=== PATIENT | female | born 1955 | race African-American/Black ===

== ENCOUNTER 2020-05-13 07:36 | Emergency (ER) | payer MEDICARE, MEDICAID ==
[~2020-05-13] VITALS: Ht 172.7 cm; Wt 113.0 kg
[~2020-05-13 07:36] MED LIST: AMLO10TA80 PO; ASPI-1497 PO; ATOR40TA70 PO; CLOP75TA33 PO; DAILY VITE PO; FURO40TA5 PO; LOSA100T32 PO; MAPAP PO; METH500T PO; METO-539 PO; POTA10TA11 PO; TRAM50TA3 PO
[2020-05-13 07:47] VITALS: BP 122/73
[2020-05-13] MEDS ORDERED: FAMOTIDINE 20MG TABLET PO ONE (08:30)
[2020-05-13] MEDS ORDERED: PREDNISONE 20MG TABLET PO ONE (08:30)
[2020-05-13] MEDS ORDERED: DIPHENHYDRAMINE 25MG CAPSULE PO ONE (08:30)
== END 2020-05-13 09:03 | disposition home or self-care (01) ==
LOC: ER 09:03
DX: T78.40XA Allergy, unspecified, initial encounter (principal); X58.XXXA Exposure to other specified factors, initial encounter; Z88.8 Allergy status to other drugs, medicaments and biological substances; I10 Essential (primary) hypertension; I25.2 Old myocardial infarction; Z95.820 Peripheral vascular angioplasty status with implants and grafts; Z79.82 Long term (current) use of aspirin
CPT/HCPCS: 99284; J7512; Q0163